=== PATIENT | male | born 1970 | race Caucasian/White ===

== ENCOUNTER 2016-12-04 09:40 | Emergency (ER) | payer MEDICAID ==
[~2016-12-04] VITALS: Ht 177.8 cm; Wt 120.0 kg
[2016-12-04 09:41] VITALS: BP 169/100; PULSE 80; RESP 16; TEMP 98.6
--- NOTE | 2016-12-04 10:14 | PD ---
HPI Chief Complaint: Respiratory Symptoms Time Seen by Provider: 09:55 Travel History International Travel<30 days: No Contact w/Intl Traveler<30days: No Traveled to known affect area: No History of Present Illness HPI Patient is a 46-year-old male half pack per day smoker presents emergency department with cough and congestion for the past week or so. He has used an inhaler in the past. States that he has been wheezing dry cough is been going on for 3 days. Endorses chills but denies fever. Symptoms are mild, gradually worsening. No alleviating or exacerbating factors could be isolated. PFSH Past Medical History Medical History: Denies Significant Hx Diminished Hearing: No Influenza Vaccination: No Past Surgical History Surgical History: No Previous Surgery Social History Tobacco Use: Yes (1 PPD) Substance Use: Yes (MARIJUANA DAILY) Allergies-Medications (Allergen,Severity, Reaction): Coded Allergies: No Known Allergies (Unverified , 12/04/16) Reported Meds & Prescriptions Reported Meds & Active Scripts Active Azithromycin 250 Mg Tab 250 Mg PO DIRECTED Take 2 tabs (500 mg) on day 1 then 1 tab daily x 4 days. Proair Hfa 8.5 GM Inh (Albuterol Sulfate) 90 Mcg/Act Aer 1 Puff INH Q4H PRN 108 mcg/actuation Prednisone 20 Mg Tab 60 Mg PO DAILY 5 Days Review of Systems Except as stated in HPI: all other systems reviewed are Neg Physical Exam Narrative GENERAL: Well-developed well-nourished no obvious distress. SKIN: Focused skin assessment warm/dry. HEAD: Atraumatic. Normocephalic. EYES: Pupils equal and round. No scleral icterus. No injection or drainage. ENT: No nasal bleeding or discharge. Mucous membranes pink and moist. NECK: Trachea midline. No JVD. CARDIOVASCULAR: Regular rate and rhythm. No murmur appreciated. RESPIRATORY: Patient with good air entry and no increased work of breathing, does have inspiratory neck surgery wheezes and rhonchi consistent with bronchitis. GASTROINTESTINAL: Abdomen soft, non-tender, nondistended. Hepatic and splenic margins not palpable. MUSCULOSKELETAL: No obvious deformities. No clubbing. No cyanosis. No edema. NEUROLOGICAL: Awake and alert. No obvious cranial nerve deficits. Motor grossly within normal limits. Normal speech. PSYCHIATRIC: Appropriate mood and affect; insight and judgment normal. Data Data Last Documented VS Vital Signs Date Time Temp Pulse Resp B/P (MAP) Pulse Ox O2 Delivery O2 Flow Rate FiO2 12/04/16 12:21 12/04/16 11:38 100 Room Air 12/04/16 10:24 21 12/04/16 09:41 98.6 80 16 Orders Orders Electrocardiogram (12/04/16 ) Chest, Pa & Lat (12/04/16 10:13) Ecg Monitoring (12/04/16 10:13) Oximetry (12/04/16 10:13) Prednisone (Deltasone) (12/04/16 10:15) Albuterol-Ipratropium Neb (Duoneb Neb) (12/04/16 10:15) [facility] Medical Decision Making Medical Screen Exam Complete: Yes Emergency Medical Condition: Yes Interpretation(s) EKG shows sinus rhythm with sinus arrhythmia, normal axis normal R-wave progression. No concerning ST segment changes. Intervals within normal limits. This is a normal EKG. Differential Diagnosis URI, pneumonia, bronchitis. Narrative Course EKG was obtained in triage for chest congestion. Reassuring. Chest x-ray negative. We'll place the patient on azithromycin and prednisone and albuterol. Discussed symptomatic management, discussed smoking cessation return to ED criteria. He is feeling much better after DuoNeb treatments. On reexamination lungs are clear. He is stable for discharge Diagnosis Primary Impression: Bronchitis Med/Other Pt SpecificInfo: Prescription(s) given Scripts Azithromycin (Azithromycin) 250 Mg Tab 250 MG PO DIRECTED for Infection, #6 TAB 0 Refills Take 2 tabs (500 mg) on day 1 then 1 tab daily x 4 days. Prov: Kush Lopes MD 12/04/16 Albuterol 8.5 GM Inh (Proair Hfa 8.5 GM Inh) 90 Mcg/Act Aer 1 PUFF INH Q4H Y for SHORTNESS OF BREATH, #1 INHALER 1 Refill 108 mcg/actuation Prov: Kush Lopes MD 12/04/16 Prednisone (Prednisone) 20 Mg Tab 60 MG PO DAILY for 5 Days, #15 TAB 0 Refills Prov: Kush Lopes MD 12/04/16 Disposition: 01 DISCHARGE HOME Condition: Stable Kush Lopes MD Dec 04, 2016 10:14
[2016-12-04] MEDS ORDERED: predniSONE 20 MG TAB PO ONE (10:15)
[2016-12-04] MEDS: RESP: ALBUTEROL 2.5 MG/IPRATROPIUM 0.5 MG NEB (SCH) INH (10:21)
[2016-12-04 10:24] VITALS: O2SAT 98
--- NOTE | 2016-12-04 11:24 | RADRPT ---
EXAM DATE/TIME: 12/04/2016 11:16 [facility] COMPARISON: No previous studies available for comparison. INDICATIONS : Short of breath with wheezing, history of COPD and asthma. MEDICAL HISTORY : Chronic obstructive pulmonary disease. Asthma SURGICAL HISTORY : None. ENCOUNTER: Initial ACUITY: 1 day PAIN SCORE: 0/10 LOCATION: Bilateral chest FINDINGS: PA and lateral views of the chest demonstrate the lungs to be symmetrically aerated without evidence of mass, infiltrate or effusion. The cardiomediastinal contours are unremarkable. Osseous structure s are intact. CONCLUSION: 1. No acute cardiopulmonary findings. Heber Patel MD on December 04, 2016 at 11:22 Board Certified Radiologist. This report was verified electronically.
[2016-12-04 11:38] VITALS: O2SAT 100
[2016-12-04] MEDS ORDERED: PRED20 PO (12:15)
[2016-12-04] MEDS ORDERED: AZIT250T3 PO (12:15)
[2016-12-04] MEDS ORDERED: ALBUAER3 INH (12:15)
--- NOTE | 2016-12-04 14:19 | EKG ---
Date Performed: 12/04/2016 Time Performed: 09:52:26 PTAGE: 46 years EKG: Sinus rhythm WITH SINUS ARRHYTHMIA NORMAL ECG NO PREVIOUS TRACING DOCTOR: Fab Mckeon Interpretating Date/Time 12/04/2016 14:13:35
== END 2016-12-04 12:32 | disposition home or self-care (01) ==
LOC: NEPD 09:40
DX: J40 Bronchitis, not specified as acute or chronic (principal); I49.8 Other specified cardiac arrhythmias; F17.200 Nicotine dependence, unspecified, uncomplicated
CPT/HCPCS: 71020; 93005; 94640; 94664; 99285; J7512